=== PATIENT | male | born 1955 | race Two or more races ===

== ENCOUNTER 2022-05-03 10:33 | Inpatient (IN) | payer OTHER ==
[~2022-05-03] VITALS: Ht 180.3 cm; Wt 99.6 kg
[2022-05-03 11:25] LABS: Basophils # (auto) 0.1 10 ^3/uL (0-0.2); Basophils % (auto) 0.7 % (0.0-2.0); Eosinophils # (auto) 0 10 ^3/uL (0-0.8); Eosinophils % (auto) 0.3 % (0.0-7.0); Hematocrit 48.5 % (41.0-53.0); Hemoglobin 16.8 g/dL (13.5-17.5); Lymphocytes # (auto) 1.1 10 ^3/uL (0.4-5.4); Lymphocytes % (auto) 13.5 % (10.0-50.0); Mean Corpuscular Hemoglobin 33.3 pg (28.0-32.0); Mean Corpuscular Hgb Conc. 34.6 g/dL (32.0-36.0); Mean Corpuscular Volume 96.2 fL (80.0-100.0); Monocytes # (auto) 0.8 10 ^3/uL (0-1.3); Monocytes % (auto) 9.6 % (0.0-12.0); Neutrophils % (auto) 75.9 % (37.0-80.0); Nucleated Red Blood Cells % 0.3 %; Red Blood Cells 5.04 10^6/uL (4.5-5.90); Red Cell Distribution Width 12.6 % (11.8-14.3); White Blood Cell 7.9 10^3/uL (4.4-10.8)
[2022-05-03] MEDS ORDERED: dilTIAZem 125mg/125ml BAG KIT 125 ML IV ONE (11:45)
[2022-05-03] MEDS ORDERED: dilTIAZem 25 MG/5 ML VIAL IV ONE (12:00)
[2022-05-03 13:07] LABS: Potassium 4.6 mmol/L (3.5-5.1)
[2022-05-03 13:13] LABS: BUN/Creatinine Ratio 9.8; Bilirubin, Total 0.9 mg/dL (0.2-1.0); Calcium 9.3 mg/dL (8.5-10.1); Total Protein 7.7 g/dL (6.4-8.2)
[2022-05-03] MEDS ORDERED: MORPHINE SULFATE INJ 2 MG/ml SYRG IV PRN (13:45)
[2022-05-03] MEDS ORDERED: hydrALAZINE HCL 20 MG/ML VL IV PRN (13:45)
[2022-05-03] MEDS ORDERED: NITROGLYCERIN 0.4 MG SL TAB SL PRN (13:45)
[2022-05-03] MEDS ORDERED: DEXTROSE (50%) 50ML SYRG IV PRN (13:45)
[2022-05-03] MEDS ORDERED: AMIODARONE HCL 150 MG in D5W 5% 100 ML IV ONE (14:15)
[2022-05-03] MEDS: FUROSEMIDE 40 MG/4 ML VIAL IV SCH ×2 (14:24→21:42)
[2022-05-03] MEDS ORDERED: AMIODARONE 450mg/250ml AE 250 ML IV SCH (14:30)
[2022-05-03] MEDS: InsuLIN REG 1unit/0.01ml Soln (100units/ml) SC SCH ×2 (17:18→21:41)
[2022-05-03] MEDS: ACCU-CHEK COMFORT CURVE STRIP VI SCH ×2 (17:20→21:43)
[2022-05-03] MEDS: AMIODARONE 450mg/250ml AE 250 ML IV SCH (20:30)
[2022-05-03] MEDS: ENOXAPARIN SOD 100 MG/1 ML SYRINGE SC SCH (21:42)
[2022-05-04 06:11] LABS: Basophils # (auto) 0 10 ^3/uL (0-0.2); Basophils % (auto) 0.4 % (0.0-2.0); Eosinophils # (auto) 0 10 ^3/uL (0-0.8); Eosinophils % (auto) 0.5 % (0.0-7.0); Hemoglobin 15.7 g/dL (13.5-17.5); Lymphocytes # (auto) 1.3 10 ^3/uL (0.4-5.4); Lymphocytes % (auto) 16.3 % (10.0-50.0); Mean Corpuscular Hemoglobin 33.2 pg (28.0-32.0); Mean Corpuscular Hgb Conc. 34.9 g/dL (32.0-36.0); Mean Corpuscular Volume 95.3 fL (80.0-100.0); Monocytes % (auto) 12.2 % (0.0-12.0); Neutrophils # (auto) 5.6 10 ^3/uL (1.6-8.6); Neutrophils % (auto) 70.6 % (37.0-80.0); Nucleated Red Blood Cells % 0.1 %; Red Blood Cells 4.72 10^6/uL (4.5-5.90); Red Cell Distribution Width 12.7 % (11.8-14.3); White Blood Cell 7.9 10^3/uL (4.4-10.8)
[2022-05-04 06:31] LABS: BUN/Creatinine Ratio 11.7; Calcium 8.9 mg/dL (8.5-10.1); Potassium 3.1 mmol/L (3.5-5.1)
[2022-05-04] MEDS: ACCU-CHEK COMFORT CURVE STRIP VI SCH ×4 (06:45→22:00)
[2022-05-04] MEDS: InsuLIN REG 1unit/0.01ml Soln (100units/ml) SC SCH ×4 (06:46→22:00)
[2022-05-04] MEDS: FUROSEMIDE 40 MG/4 ML VIAL IV SCH ×2 (10:24→22:00)
[2022-05-04] MEDS ORDERED: POTASSIUM CHL 20 Meq TABLET PO ONE (10:45)
[2022-05-04] MEDS: ENOXAPARIN SOD 100 MG/1 ML SYRINGE SC SCH ×2 (10:59→22:00)
[2022-05-04] MEDS ORDERED: DIGOXIN 0.25 MG TAB PO ONE (12:00)
[2022-05-04] MEDS: AMIODARONE 450mg/250ml AE 250 ML IV SCH ×2 (12:17→20:25)
[2022-05-04] MEDS: METOPROLOL SUCCINATE XL 50 MG TAB PO SCH (14:04)
[2022-05-04] MEDS ORDERED: chlordiazePOXIDE HCL 25 MG CAP PO PRN (16:30)
[2022-05-04] MEDS ORDERED: LORazepam 2MG/ML-1ML VIAL IV ONE (16:30)
[2022-05-04 22:00] VITALS: BP 146/105
[2022-05-05 05:00] VITALS: BP 133/90
[2022-05-05] MEDS: InsuLIN REG 1unit/0.01ml Soln (100units/ml) SC SCH ×2 (05:19→11:06)
[2022-05-05] MEDS: ACCU-CHEK COMFORT CURVE STRIP VI SCH ×2 (05:31→11:06)
[2022-05-05 06:28] LABS: Eosinophils # (auto) 0 10 ^3/uL (0-0.8); Eosinophils % (auto) 0.5 % (0.0-7.0); Neutrophils # (auto) 5.4 10 ^3/uL (1.6-8.6); Nucleated Red Blood Cells % 0.1 %; White Blood Cell 7.9 10^3/uL (4.4-10.8)
[2022-05-05 06:32] LABS: Basophils # (auto) 0 10 ^3/uL (0-0.2); Basophils % (auto) 0.5 % (0.0-2.0); Hematocrit 45.3 % (41.0-53.0); Hemoglobin 15.8 g/dL (13.5-17.5); Lymphocytes # (auto) 1.3 10 ^3/uL (0.4-5.4); Lymphocytes % (auto) 17.1 % (10.0-50.0); Mean Corpuscular Hemoglobin 33.8 pg (28.0-32.0); Mean Corpuscular Volume 96.7 fL (80.0-100.0); Monocytes % (auto) 13.2 % (0.0-12.0); Neutrophils % (auto) 68.7 % (37.0-80.0); Red Blood Cells 4.68 10^6/uL (4.5-5.90); Red Cell Distribution Width 12.9 % (11.8-14.3)
[2022-05-05] MEDS: AMIODARONE 450mg/250ml AE 250 ML IV SCH (06:54)
[2022-05-05 06:55] LABS: BUN/Creatinine Ratio 11.2; Calcium 9.3 mg/dL (8.5-10.1); Potassium 3.6 mmol/L (3.5-5.1)
[2022-05-05 09:00] VITALS: BP 136/83
[2022-05-05] MEDS: ENOXAPARIN SOD 100 MG/1 ML SYRINGE SC SCH (09:37)
[2022-05-05] MEDS: METOPROLOL SUCCINATE XL 50 MG TAB PO SCH (09:37)
[2022-05-05] MEDS: FUROSEMIDE 40 MG/4 ML VIAL IV SCH (09:37)
[2022-05-05] MEDS ORDERED: AMIODARONE HCL 200 MG TAB PO ONE (09:45)
[2022-05-05] MEDS ORDERED: AMIODARONE HCL 200 MG TAB PO SCH (10:00)
[2022-05-05 13:00] VITALS: BP 133/74
[2022-05-05] MEDS ORDERED: APIX5TAB PO (13:17)
[2022-05-05] MEDS ORDERED: LISI-275 PO (13:17)
[2022-05-05] MEDS ORDERED: FURO1TAB33 PO (13:17)
[2022-05-05] MEDS ORDERED: METO-6 PO (13:17)
[2022-05-05 14:12] VITALS: BP 136/83
[2022-05-05] MEDS ORDERED: APIXABAN 5 MG TAB PO SCH (22:00)
== END 2022-05-05 15:13 | disposition home or self-care (01) | DRG 308 ==
LOC: ER 10:33 → TELE 13:45 → TELE-WESTW 05-04 20:59
PROVIDERS: ADMIT Internal Medicine; ATTEND Internal Medicine
DX: I48.91 Unspecified atrial fibrillation (principal); I50.33 Acute on chronic diastolic (congestive) heart failure; I11.0 Hypertensive heart disease with heart failure; F10.20 Alcohol dependence, uncomplicated; Z20.822 Contact with and (suspected) exposure to COVID-19; Z91.199 Patient's noncompliance with other medical treatment and regimen due to unspecified reason; Z90.49 Acquired absence of other specified parts of digestive tract
CPT/HCPCS: 36415; 71045; 80048; 80053; 82962; 83735; 83880; 84443; 84484; 85025; 87426; 93005; 93306; 96365; 96375; 99291; G0378; J1815; J7060

== ENCOUNTER 2022-09-10 19:26 | Emergency (ER) | payer OTHER ==
[~2022-09-10] VITALS: Ht 180.3 cm; Wt 85.5 kg
[~2022-09-10 19:26] MED LIST: APIX5TAB PO; FURO1TAB33 PO; LISI-275 PO; METO-6 PO
[2022-09-10 22:20] LABS: Basophils # (auto) 0.1 10 ^3/uL (0-0.2); Basophils % (auto) 0.7 % (0.0-2.0); Eosinophils # (auto) 0.2 10 ^3/uL (0-0.8); Eosinophils % (auto) 1.4 % (0.0-7.0); Hematocrit 41.9 % (41.0-53.0); Hemoglobin 14.8 g/dL (13.5-17.5); Lymphocytes # (auto) 1.2 10 ^3/uL (0.4-5.4); Mean Corpuscular Hemoglobin 32.9 pg (28.0-32.0); Mean Corpuscular Hgb Conc. 35.3 g/dL (32.0-36.0); Mean Corpuscular Volume 93.1 fL (80.0-100.0); Monocytes % (auto) 9.6 % (0.0-12.0); Neutrophils # (auto) 8.2 10 ^3/uL (1.6-8.6); Neutrophils % (auto) 77.3 % (37.0-80.0); Nucleated Red Blood Cells % 0.1 %; Red Cell Distribution Width 13.9 % (11.8-14.3); White Blood Cell 10.7 10^3/uL (4.4-10.8)
[2022-09-10 22:41] LABS: Albumin 4.2 g/dL (3.4-5.0); Calcium 8.8 mg/dL (8.5-10.1); Magnesium 2.3 mg/dL (1.6-2.6); Potassium 3.8 mmol/L (3.5-5.1)
[2022-09-10 22:45] LABS: BUN/Creatinine Ratio 11.3 (10.0-20.0); Bilirubin, Total 0.7 mg/dL (0.2-1.0); Total Protein 7.2 g/dL (6.4-8.2)
[2022-09-11] MEDS ORDERED: cloNIDine HCL 0.1 MG TAB PO ONE (01:45)
[2022-09-11 02:45] VITALS: BP 152/85
== END 2022-09-11 01:14 | disposition home or self-care (01) ==
LOC: ER 19:26
DX: I48.20 Chronic atrial fibrillation, unspecified (principal); E87.1 Hypo-osmolality and hyponatremia; I12.9 Hypertensive chronic kidney disease with stage 1 through stage 4 chronic kidney disease, or unspecified chronic kidney disease; N18.9 Chronic kidney disease, unspecified; F12.10 Cannabis abuse, uncomplicated; Z90.49 Acquired absence of other specified parts of digestive tract
CPT/HCPCS: 36415; 71045; 80053; 83735; 84484; 85025